=== PATIENT | female | born 1995 | race African-American/Black ===

== ENCOUNTER 2016-07-17 16:49 | Emergency (ER) | payer OTHER ==
[~2016-07-17] VITALS: Ht 157.5 cm; Wt 48.0 kg
[2016-07-17 16:55] VITALS: TEMP 36.9; Ht 157.5 cm; Wt 48.0 kg
[2016-07-17] MEDS ORDERED: SODIUM CHLORIDE 0.9% 1000ML 1,000 ML IV STA ×2 (17:18→18:19)
[2016-07-17] MEDS ORDERED: BCPILLS PO (17:25)
[2016-07-17] MEDS ORDERED: IBUP-1450 PO (17:25)
[2016-07-17 17:39] LABS: BASO % 0.2 %; BASO ABS # 0.02 K/uL (0-0.2); COMPLETE YES; EOS % 0.8 %; HEMATOCRIT 36.5 % (37-47); IG% 0.2 %; LYMPH % 37.9 %; LYMPH ABS # 3.28 K/uL (1.2-3.4); MEAN CORPUSCULAR HGB CONC 33.7 g/dl (32-36); MEAN PLATELET VOLUME 8.6 fL (7.4-10.4); MONO % 5.4 %; NEUT % 55.5 %; PLATELET COUNT 261 K/uL (130-400); WHITE BLOOD COUNT 8.66 K/uL (4.8-10.8)
[2016-07-17 17:42] LABS: URINE APPEARANCE CLEAR (CLEAR); URINE BILIRUBIN NEG (NEG); URINE COLOR YELLOW; URINE NITRITE NEG (NEG); URINE SPECIFIC GRAVITY 1.018 (1.000-1.030); UROBILINOGEN NEG (NEG); ZZUR CULT IF INDIC CLEAN CATCH NO
[2016-07-17 17:53] LABS: MANUAL MICROSCOPIC REQUIRED? NO; REVIEW REQ? YES
[2016-07-17 17:55] LABS: CALCIUM 9.2 mg/dl (8.5-10.1); CREATININE 0.8 mg/dl (0.60-1.20); POTASSIUM 4.8 mmol/L (3.5-5.1)
--- NOTE | 2016-07-17 20:16 | DIAGNOSTIC IMAGING REPORT ---
ULTRASOUND OF THE PELVIS CLINICAL HISTORY: Left pelvic pain. COMPARISON STUDY: No priors. TECHNIQUE: Real-time, grayscale, and color flow sonography of the pelvis is performed transabdominally. The endovaginal examination was deferred. Images are reviewed in the transverse and longitudinal planes. FINDINGS: Uterus: The uterus is normal in size and echotexture, measuring 8.7 x 3.7 x 4.6 cm. Endometrium: The endometrium is normal in appearance, and the endometrial stripe is normal in thickness measuring up to 0.7 cm. Ovaries: The ovaries are normal in size and morphology. The right ovary measures 2.8 x 2.1 x 2.4 cm and the left ovary measures 3.6 x 1.9 x 3.0 cm. Normal Doppler waveforms are shown within both ovaries. Pelvis: There is no free fluid in the cul-de-sac. No concerning adnexal lesion is seen. IMPRESSION: Unremarkable transabdominal sonographic assessment of the pelvis. Electronically signed by: Nawaf Dominguez M.D. 07/17/2016 8:14 PM Dictated Date/Time: 07/17/2016 8:13 PM
--- NOTE | 2016-07-17 21:00 | EMERGENCY ROOM VISIT NOTE ---
History Report prepared by Stevie: Melo Jeffery Under the Supervision of: Dr. Derrell Means M.D. First contact with patient: 17:06 Chief Complaint: VAGINAL BLEEDING Stated Complaint: ON CYCLE FOR MONTHS NOW History of Present Illness The patient is a 20 year old female who presents to the Emergency Room with complaints of persistent vaginal bleeding beginning several months prior to arrival. She associates lower abdominal pain, weakness, and lightheadedness with today's symptoms. The patient states she has been evaluated for her symptoms in May, in which, she was told to take 800mg Ibuprofen for 10-12 days. She notes she had her blood work checked on June 03, which revealed a hemoglobin of 12.6 and normal bleeding times. The patient states she is on control and does not take iron supplements. She denies being sexually active, and states she is a virgin. The patient notes she has never had a full pelvic exam. She denies recent cold symptoms and recent syncopal episodes. Source of History: patient Onset: several months [employer] Position: other (vagina) Quality: other (vaginal bleeding) Timing: other (persistent) Associated Symptoms: + abdominal pain (lower), + weakness Note: Associated symptoms: lightheadedness. Review of Systems See HPI for pertinent positives & negatives. A total of 10 systems reviewed and were otherwise negative. Past Medical & Surgical Medical Problems: (1) No pertinent past medical history Family History Patient reports no known family medical history. Social History Smoking Status: Never Smoker Marital Status: single Occupation Status: [employer] student Current/Historical Medications Scheduled Control Pills ( Control Pills), 1 TAB PO QAM Scheduled PRN Ibuprofen (Motrin), 600 MG PO Q8 PRN for Pain Allergies Coded Allergies: Mushroom (Unverified Allergy, Unknown, HIVES, 07/17/16) Physical Exam Vital Signs Date Time Temp Pulse Resp B/P Pulse Ox O2 Delivery O2 Flow Rate FiO2 07/17/16 21:16 79 16 111/73 100 07/17/16 19:02 80 18 105/64 100 Room Air 07/17/16 16:55 36.9 78 20 136/95 99 Room Air Physical Exam GENERAL: Patient is anxious appearing and in minimal distress. HEENT: No acute trauma, normocephalic atraumatic, mucous membranes moist, no nasal congestion, no scleral icterus. NECK: No stridor, no adenopathy, no meningismus, trachea is midline. LUNGS: No dyspnea. Clear to auscultation and equal bilaterally. No wheeze, no rhonchi. HEART: Regular rate and rhythm. No murmurs, rubs, gallops appreciated. ABDOMEN: Left suprapubic tenderness to palpation. Soft, bowel sounds positive, no masses appreciated, no peritonitis. BACK: No midline tenderness, no CVA tenderness : Patient has scant blood in vagina. Significant pain with even mild attempt at speculum exam. EXTREMITIES: Normal motion all extremities, no cyanosis, no edema. NEUROLOGIC: Alert and oriented, no acute motor or sensory deficits, no focal weakness, cranial nerves grossly intact. SKIN: No rash, no jaundice, no diaphoresis. Medical Decision & Procedures ER Provider Diagnostic Interpretation: US results are stated below per my interpretation and the radiologist's interpretation. ULTRASOUND OF THE PELVIS CLINICAL HISTORY: Left pelvic pain. COMPARISON STUDY: No priors. TECHNIQUE: Real-time, grayscale, and color flow sonography of the pelvis is performed transabdominally. The endovaginal examination was deferred. Images are reviewed in the transverse and longitudinal planes. FINDINGS: Uterus: The uterus is normal in size and echotexture, measuring 8.7 x 3.7 x 4.6 cm. Endometrium: The endometrium is normal in appearance, and the endometrial stripe is normal in thickness measuring up to 0.7 cm. Ovaries: The ovaries are normal in size and morphology. The right ovary measures 2.8 x 2.1 x 2.4 cm and the left ovary measures 3.6 x 1.9 x 3.0 cm. Normal Doppler waveforms are shown within both ovaries. Pelvis: There is no free fluid in the cul-de-sac. No concerning adnexal lesion is seen. IMPRESSION: Unremarkable transabdominal sonographic assessment of the pelvis. Electronically signed by: Nawaf Dominguez M.D. 07/17/2016 8:14 PM Laboratory Results 07/17/16 17:30 Red Blood Count 4.10, Mean Corpuscular Volume 89.0, Mean Corpuscular Hemoglobin 30.0, Mean Corpuscular Hemoglobin Concent 33.7, Mean Platelet Volume 8.6, Neutrophils (%) (Auto) 55.5, Lymphocytes (%) (Auto) 37.9, Monocytes (%) (Auto) 5.4, Eosinophils (%) (Auto) 0.8, Basophils (%) (Auto) 0.2, Neutrophils # (Auto) 4.80, Lymphocytes # (Auto) 3.28, Monocytes # (Auto) 0.47, Eosinophils # (Auto) 0.07, Basophils # (Auto) 0.02 07/17/16 17:30 Test 07/17/16 17:10 07/17/16 17:30 Urine Color YELLOW Urine Appearance CLEAR (CLEAR) Urine pH 8.0 (4.5-7.5) Urine Specific [place] 1.018 (1.000-1.030) Urine Protein NEG (NEG) Urine Glucose (UA) NEG (NEG) Urine Ketones NEG (NEG) Urine Occult Blood 3+ (NEG) Urine Nitrite NEG (NEG) Urine Bilirubin NEG (NEG) Urine Urobilinogen NEG (NEG) Urine Leukocyte Esterase NEG (NEG) Urine WBC (Auto) 1-5 /hpf (0-5) Urine RBC (Auto) 0-4 /hpf (0-4) Urine Hyaline Casts (Auto) 1-5 /lpf (0-5) Urine Epithelial Cells (Auto) 10-20 /lpf (0-5) Urine Bacteria (Auto) NEG (NEG) Urine Test NEG (NEG) White Blood Count 8.66 K/uL (4.8-10.8) Red Blood Count 4.10 M/uL (4.2-5.4) Hemoglobin 12.3 g/dL (12.0-16.0) Hematocrit 36.5 % (37-47) Mean Corpuscular Volume 89.0 fL (80-100) Mean Corpuscular Hemoglobin 30.0 pg (25-34) Mean Corpuscular Hemoglobin Concent 33.7 g/dl (32-36) Platelet Count 261 K/uL (130-400) Mean Platelet Volume 8.6 fL (7.4-10.4) Neutrophils (%) (Auto) 55.5 % Lymphocytes (%) (Auto) 37.9 % Monocytes (%) (Auto) 5.4 % Eosinophils (%) (Auto) 0.8 % Basophils (%) (Auto) 0.2 % Neutrophils # (Auto) 4.80 K/uL (1.4-6.5) Lymphocytes # (Auto) 3.28 K/uL (1.2-3.4) Monocytes # (Auto) 0.47 K/uL (0.11-0.59) Eosinophils # (Auto) 0.07 K/uL (0-0.5) Basophils # (Auto) 0.02 K/uL (0-0.2) RDW Standard Deviation 44.1 fL (36.4-46.3) RDW Coefficient of Variation 13.4 % (11.5-14.5) Immature Granulocyte % (Auto) 0.2 % Immature Granulocyte # (Auto) 0.02 K/uL (0.00-0.02) Anion Gap 9.0 mmol/L (3-11) Est Creatinine Clear Calc Drug Dose 84.3 ml/min Estimated GFR () 122.2 Estimated GFR (Non- 105.4 BUN/Creatinine Ratio 11.0 (10-20) Calcium Level 9.2 mg/dl (8.5-10.1) Laboratory results as reviewed by me. Medications Administered Medications (Trade) Dose Ordered Sig/Jace Route Start Time Stop Time Status Last Admin Dose Admin Sodium Chloride 1,000 ml @ 999 mls/hr Q1H1M STAT IV 07/17/16 17:18 07/17/16 18:18 DC 07/17/16 17:18 999 MLS/HR Sodium Chloride (Nss 1000ml) 1,000 ml @ 999 mls/hr Q1H1M STAT IV 07/17/16 18:19 07/17/16 19:19 DC 07/17/16 18:29 999 MLS/HR ED Course 1710: The patient was evaluated in room C7. A complete history and physical exam was performed. 1718: Ordered Sodium Chloride 1,000 ml @ 999 mls/hr IV. 9: Ordered Sodium Chloride 1,000 ml @ 999 mls/hr IV. 2041: Reevaluated the patient at this time, and she is feeling fine and would like me to call her sister. 2055: I spoke to the patient's sister and updated her on the patient. 2100: Reevaluated the patient. Discussed results and discharge instructions: She verbalized understanding and agreement. The patient is ready for discharge. Medical Decision Differential: Menstrual Bleeding, Dysfunctional Uterine Bleeding, Infectious, Ectopic , Bleeding Dyscrasia, amongst other pathologies entertained. 20 yr old female with several months of irregular vaginal bleeding which after talking to her sister apparently has been ongoing for years. Sounds like yesterday was heavier than today. Full pelvic not done and no previous intercourse and did not tolerate initial attempt as speculum but essentially there is just some scan blood noted. She has normal labs and unremarkable pelvic ultrasound. HgB is at her baseline. She is not hemorrhaging. As this has been ongoing for quite some time I feel that follow up with her Director Perioperative who has previously seen her for this is reasonable. She is stable and in no distress. Understands she can return at any time if worsening or other concerns. Consults Time Called: 2052 Consulting Physician: patient's sister Returned Call: 2055 I spoke to the patient's sister and updated her on the patient. Impression Primary Impression: Abnormal vaginal bleeding Scribe Attestation The scribe's documentation has been prepared under my direction and personally reviewed by me in its entirety. I confirm that the note above accurately reflects all work, treatment, procedures, and medical decision making performed by me. Departure Information Dispostion Home / Self-Care Referrals No Doctor, Assigned (PCP) Forms HOME CARE DOCUMENTATION FORM, IMPORTANT VISIT INFORMATION, WORK / SCHOOL INSTRUCTIONS Patient Instructions ED Bleed Irregular Vaginal, My [facility] authorGEN Additional Instructions Please follow up with you Director Perioperative to discuss further treatment of you irregular bleeding. You had an Ultrasound of you Uterus and Ovaries which was normal. Labs were unremarkable with normal blood counts.
[2016-07-17 21:16] VITALS: BP 111/73; PULSE 79; O2SAT 100
== END 2016-07-17 21:40 | disposition home or self-care (01) ==
LOC: C.EDB 16:53 → C.EDC 21:40
DX: N93.9 Abnormal uterine and vaginal bleeding, unspecified (principal)